=== PATIENT | male | born 1995 | race African-American/Black ===

== ENCOUNTER 2018-07-10 14:56 | Emergency (ER) | payer SELFPAY ==
[~2018-07-10] VITALS: Ht 170.2 cm; Wt 59.0 kg
[2018-07-10] MEDS ORDERED: KETOROLAC 30MG/ML VIAL IM ONE (15:45)
[2018-07-10] MEDS ORDERED: ONDANSETRON HCL 4MG/2ML INJ IM ONE (15:45)
[2018-07-10] MEDS ORDERED: BACITRACIN ZINC OINT UDPKT TOP ONE (15:45)
[2018-07-10] MEDS ORDERED: TETANUS, DIPHTHERIA, PERTUSSIS VAC/PF 0.5ML (>7YR OLD) IM ONE (15:45)
[2018-07-10] MEDS ORDERED: LIDOCAINE HCL/PF 1% 10 MG/ML 5ML VIAL IJ ONE (15:45)
[2018-07-10 18:17] VITALS: BP 113/68
== END 2018-07-10 18:18 | disposition home or self-care (01) ==
LOC: ER 16:18
DX: S09.8XXA Other specified injuries of head, initial encounter (principal); S01.511A Laceration without foreign body of lip, initial encounter; F17.200 Nicotine dependence, unspecified, uncomplicated; F12.10 Cannabis abuse, uncomplicated; Y08.89XA Assault by other specified means, initial encounter; Y93.89 Activity, other specified; Y92.89 Other specified places as the place of occurrence of the external cause; Y99.8 Other external cause status
CPT/HCPCS: 12011; 70486; 90471; 90715; 96372; 99284; J1885; J2405; J3490; Z7610

== ENCOUNTER 2019-12-15 13:19 | Emergency (ER) | payer MEDICAID ==
[~2019-12-15] VITALS: Ht 170.2 cm; Wt 66.0 kg
[2019-12-15 13:31] VITALS: BP 112/65
[2019-12-15 15:41] LABS: CLARITY URINE CLEAR (CLEAR); COLOR URINE YELLOW (YELLOW); KETONES URINE NEGATIVE (NEGATIVE); LEUKOCYTE ESTERASE URINE NEGATIVE (NEGATIVE); NITRITE URINE NEGATIVE (NEGATIVE); OCCULT BLOOD URINE TRACE (NEGATIVE); PROTEIN URINE NEGATIVE (NEGATIVE); SPECIFIC GRAVITY URINE 1.021 (1.005-1.030); UROBILINOGEN URINE 0.2 E.U./dL (0.2-1.0)
[2019-12-20 04:08] LABS: NEISSERIA GONORRHOEAE NAA Negative (Negative)
== END 2019-12-15 16:14 | disposition home or self-care (01) ==
LOC: ER 13:19
DX: R30.0 Dysuria (principal); F12.10 Cannabis abuse, uncomplicated; F17.210 Nicotine dependence, cigarettes, uncomplicated; Z91.09 Other allergy status, other than to drugs and biological substances
CPT/HCPCS: 81003; 87491; 87591; 99283

== ENCOUNTER 2020-11-06 13:21 | Emergency (ER) | payer MEDICAID, OTHER ==
[~2020-11-06] VITALS: Ht 170.2 cm; Wt 63.0 kg
[2020-11-06] MEDS ORDERED: ONDANSETRON 4MG ODT PO ONE (16:45)
[2020-11-06] MEDS ORDERED: ONDA4TAB11 PO (17:13)
[2020-11-06 17:22] VITALS: BP 125/58
== END 2020-11-06 18:21 | disposition home or self-care (01) ==
LOC: ER 13:21
DX: J06.9 Acute upper respiratory infection, unspecified (principal); F12.10 Cannabis abuse, uncomplicated; Z20.822 Contact with and (suspected) exposure to COVID-19
CPT/HCPCS: 71045; 99284; C9803; Q0162; U0003; U0005

== ENCOUNTER 2020-11-13 14:17 | Emergency (ER) | payer OTHER ==
[~2020-11-13] VITALS: Ht 175.3 cm; Wt 64.0 kg
[~2020-11-13 14:17] MED LIST: ONDA4TAB11 PO
[2020-11-13 15:01] VITALS: BP 110/53
[2020-11-13] MEDS ORDERED: POLY10DR LEFTEYE (17:52)
== END 2020-11-13 18:44 | disposition home or self-care (01) ==
LOC: ER 14:17
DX: L53.9 Erythematous condition, unspecified (principal); F12.10 Cannabis abuse, uncomplicated
CPT/HCPCS: 99283

== ENCOUNTER 2020-11-19 11:13 | Emergency (ER) | payer OTHER ==
[~2020-11-19] VITALS: Ht 165.1 cm; Wt 65.0 kg
[~2020-11-19 11:13] MED LIST changes: +POLY10DR LEFTEYE
[2020-11-19 11:33] VITALS: BP 108/70
[2020-11-19] MEDS ORDERED: FLUORESCEIN SODIUM 1MG/STRIP LEFTEYE ONE (11:45)
[2020-11-19] MEDS ORDERED: ERYT1OIN6 LEFTEYE (12:22)
[2020-11-19] MEDS ORDERED: [UNRECOGNIZED DRUG - CODE] OP (12:22)
== END 2020-11-19 12:38 | disposition home or self-care (01) ==
LOC: ER 11:13
DX: H16.002 Unspecified corneal ulcer, left eye (principal); H20.012 Primary iridocyclitis, left eye; F12.10 Cannabis abuse, uncomplicated; Z91.09 Other allergy status, other than to drugs and biological substances
CPT/HCPCS: 99283

== ENCOUNTER 2021-09-30 20:13 | Emergency (ER) | payer OTHER ==
[~2021-09-30] VITALS: Ht 170.2 cm; Wt 72.1 kg
[~2021-09-30 20:13] MED LIST changes: +ERYT1OIN6 LEFTEYE; +[UNRECOGNIZED DRUG - CODE] OP
[2021-09-30] MEDS ORDERED: ACETAMINOPHEN 325MG TABLET PO ONE (22:30)
[2021-09-30] MEDS ORDERED: KETOROLAC 30MG/ML VIAL IM ONE (22:45)
[2021-09-30 22:58] VITALS: BP 118/71
[2021-10-01 00:11] LABS: CLARITY URINE CLEAR (CLEAR); COLOR URINE YELLOW (YELLOW); KETONES URINE 3+ (NEGATIVE); LEUKOCYTE ESTERASE URINE NEGATIVE (NEGATIVE); NITRITE URINE NEGATIVE (NEGATIVE); OCCULT BLOOD URINE TRACE (NEGATIVE); PROTEIN URINE NEGATIVE (NEGATIVE); SPECIFIC GRAVITY URINE 1.015 (1.005-1.030); UROBILINOGEN URINE 0.2 E.U./dL (0.2-1.0)
[2021-10-01] MEDS ORDERED: DOXY-326 MT (00:51)
[2021-10-01] MEDS ORDERED: DOXYCYCLINE HYCLATE 100MG CAPSULE PO ONE (01:00)
[2021-10-01] MEDS ORDERED: CEFTRIAXONE SODIUM 500 MG/VIAL IM ONE (01:00)
== END 2021-10-01 01:19 | disposition home or self-care (01) ==
LOC: ER 20:13
DX: N50.812 Left testicular pain (principal); N50.811 Right testicular pain; R30.0 Dysuria; N43.3 Hydrocele, unspecified; F12.10 Cannabis abuse, uncomplicated; Z79.899 Other long term (current) drug therapy
CPT/HCPCS: 76870; 81003; 93976; 96372; 99284; J0696; J1885